=== PATIENT | female | born 2005 | race Caucasian/White ===

== ENCOUNTER 2025-02-11 16:33 | Emergency (ER) | payer BC, SELFPAY ==
[2025-02-11 16:37] VITALS: BP 123/76; PULSE 80; TEMP 36.7; O2SAT 100; BMI 25.4
--- NOTE | 2025-02-11 17:59 | ED_ITS ---
HPI HPI - General Adult General Chief complaint: Skin/Abscess/Foreign Body Stated complaint: LUMP Time Seen by Provider: 02/11/25 17:53 Source: patient Mode of arrival: walk-in Limitations: no limitations History of Present Illness HPI narrative: This 19-year-old female has noticed a lump at the base of her neck laterally on the right side for the last 6 days. She presented to [facility] emergency department where she had a negative strep screen and she was placed on amoxicillin. That was 6 days ago. The lump has not changed in size. She denies sore throat, chills, fever or night sweats or weight loss. Related Data Home Medications ?Medication ?Instructions ?Recorded ?Confirmed No Known Home Medications 02/11/25 02/11/25 Allergies Allergy/AdvReac Type Severity Reaction Status Date / Time No Known Drug Allergies Allergy Verified 02/11/25 16:37 Opioid HPI Opioid Management Most Recent Opioid Data: Last Pain Scale 6 02/11/25 18:34 02/11/25 Review of Systems ROS Status of ROS 10 or more systems reviewed and unremark able except as noted in history and below Exam Narrative Exam Narrative: Afebrile and nondistressed. HEENT exam is normal to inspection. Oral cavity is moist. There is no pharyngeal erythema. Patient has an enlarged lymph node laterally at the base of the neck there is discrete and mobile and nontender and not hard. No other cervical adenopathy is noted. There is no supraclavicular adenopathy. Lung sounds are clear to auscultation bilaterally. Heart has regular rate and rhythm. Abdomen soft nontender and there is no hepatosplenomegaly. Constitutional Vital Signs, click to edit/add: Last Vital Signs Temp 98.1 F 02/11/25 16:37 Pulse 80 02/11/25 16:37 Resp 18 02/11/25 16:37 BP 123/76 02/11/25 16:37 Pulse Ox 100 02/11/25 16:37 O2 Del Method Room Air 02/11/25 16:37 Course Vital Signs Vital signs: Vital Signs Temperature 98.1 F 02/11/25 16:37 Pulse Rate 80 02/11/25 16:37 Respiratory Rate 18 02/11/25 16:37 Blood Pressure 123/76 02/11/25 16:37 Pulse Oximetry 100 02/11/25 16:37 Oxygen Delivery Method Room Air 02/11/25 16:37 Temperature 98.1 F 02/11/25 16:37 Pulse Rate 80 02/11/25 16:37 Respiratory Rate 18 02/11/25 16:37 Blood Pressure 123/76 02/11/25 16:37 Pulse Oximetry 100 02/11/25 16:37 Oxygen Delivery Method Room Air 02/11/25 16:37 Medical Decision Making MDM Narrative Medical decision making narrative: Patient's mononucleosis screen is negative. The white count is normal but she is anemic with microcytic indices. She has a history of heavy menses. I feel that the cause of her enlarged lymph node can be determined by biopsy and for that she is referred to outpatient surgery follow-up. Lab Data Labs: Lab Results 02/11/25 Range/Units 18:05 WBC 5.4 (4.0-11.0) 10^3/uL RBC 4.67 (4.20-5.40) 10^6/uL Hgb 8.4 L (12.0-16.0) g/dL Hct 30.7 L (36.0-48.0) % MCV 65.7 L (81.0-99.0) fL MCH 18.0 L (26.7-34.0) pg MCHC 27.4 L (29.9-35.2) g/dL RDW 17.7 H (11.0-15.0) % Plt Count 358 (150-450) 10^3/uL MPV 9.5 (9.5-13.5) fL Neut % (Auto) 41.3 L (43.0-75.0) % Lymph % (Auto) 45.3 (20.5-60.0) % [place] % (Auto) 10.5 (1.7-12.0) % Eos % (Auto) 2.2 (0.9-7.0) % Baso % (Auto) 0.7 (0.2-2.0) % Neut # (Auto) 2.2 (1.4-6.5) 10^3/uL Lymph # (Auto) 2.5 (1.2-3.8) 10^3/uL [place] # (Auto) 0.6 (0.3-0.8) 10^3/uL Eos # (Auto) 0.1 (0.0-0.7) 10^3/uL Baso # (Auto) 0.0 (0.0-0.1) 10^3/uL Abs Immat Gran (auto) 0.00 (0.00-0.03) 10^3/uL Imm/Tot Granulo (auto) 0.0 (0.0-0.5) % Sodium 141 (136-145) mmol/L Potassium 3.4 L (3.5-5.1) mmol/L Chloride 105 (98-107) mmol/L Carbon Dioxide 27.8 (21.0-32.0) mmol/L Anion Gap 11.6 BUN 8.0 (7.0-18.0) mg/dL Creatinine 0.70 (0.55-1.02) mg/dL Est GFR ( Amer) >60 (>=60 mL/min/1.73m^2) Est GFR (Non-Af Amer) >60 (>=60 mL/min/1.73m^2) BUN/Creatinine Ratio 11.4 Glucose 92 (74-106) mg/dL Calcium 9.6 (8.5-10.1) mg/dL Total Bilirubin 0.3 (0.2-1.0) mg/dL Direct Bilirubin 0.1 (0.0-0.2) mg/dL AST 19 (15-37) U/L ALT 17 (14-59) U/L Alkaline Phosphatase 91 (46-116) U/L Total Protein 7.7 (6.4-8.2) g/dL Albumin 4.0 (3.4-5.0) g/dL Globulin 3.7 g/dL Albumin/Globulin Ratio 1.1 Monoscreen Negative (NEGATIVE) Discharge Plan Discharge Chief Complaint: Skin/Abscess/Foreign Body Clinical Impression: Adenopathy, cervical Patient Disposition: Home, Self-Care Time of Disposition Decision: 18:50 Condition: Good Mode of Transportation: Private Vehicle Prescriptions / Home Meds: No Action No Known Home Medications Print Language: Maltese Instructions: Lymphadenopathy (ED) Additional Instructions: Follow-up with surgeon of choice for possible lymph node dissection and biopsy to reveal cause of enlarged lymph node. Return for worsening symptoms. Referrals: Kannan Franks MD [Physician] - As soon as possible Physician,Non-Staff, [Primary Care Provider] - 1 week
[2025-02-11 18:16] LABS: Basophils Percent Auto 0.7 % (0.2-2.0); Eosinophils Absolute Auto 0.1 10^3/uL (0.0-0.7); Eosinophils Percent Auto 2.2 % (0.9-7.0); Hematocrit 30.7 % (36.0-48.0); Hemoglobin 8.4 g/dL (12.0-16.0); Lymphocytes Absolute Auto 2.5 10^3/uL (1.2-3.8); Lymphocytes Percent Auto 45.3 % (20.5-60.0); Mean Corpuscular HGB Conc 27.4 g/dL (29.9-35.2); Mean Corpuscular Volume 65.7 fL (81.0-99.0); Mean Platelet Volume 9.5 fL (9.5-13.5); Monocytes Absolute Auto 0.6 10^3/uL (0.3-0.8); Monocytes Percent Auto 10.5 % (1.7-12.0); Neutrophils Absolute Auto 2.2 10^3/uL (1.4-6.5); Neutrophils Percent Auto 41.3 % (43.0-75.0); Platelet Count 358 10^3/uL (150-450); Red Blood Count 4.67 10^6/uL (4.20-5.40); Red Cell Distribution Width 17.7 % (11.0-15.0); White Blood Count 5.4 10^3/uL (4.0-11.0)
[2025-02-11 18:41] LABS: Internal Control Within Normal Limits; Mono Screen NEGATIVE (NEGATIVE)
[2025-02-11 18:44] LABS: Alanine Aminotransferase 17 U/L (14-59); Albumin Globulin Ratio 1.1; Alkaline Phosphatase 91 U/L (46-116); Anion Gap 11.6; Aspartate Amino Transferase 19 U/L (15-37); BUN Creatinine Ratio 11.4; Bilirubin Direct 0.1 mg/dL (0.0-0.2); Bilirubin Total 0.3 mg/dL (0.2-1.0); Calcium 9.6 mg/dL (8.5-10.1); Carbon Dioxide 27.8 mmol/L (21.0-32.0); Chloride 105 mmol/L (98-107); Estimated GFR (African America >60 (>=60 mL/min/1.73m^2); Estimated GFR (Non-African Ame >60 (>=60 mL/min/1.73m^2); Globulin 3.7 g/dL; Glucose 92 mg/dL (74-106); Potassium 3.4 mmol/L (3.5-5.1); Sodium 141 mmol/L (136-145); Total Protein 7.7 g/dL (6.4-8.2)
== END 2025-02-11 18:59 | disposition home or self-care (01) ==
PROVIDERS: Emergency Provider Emergency Medicine
DX: R59.0 Localized enlarged lymph nodes (principal)
CPT/HCPCS: 36415; 80048; 80076; 85025; 86308; 99283